=== PATIENT | male | born 2000 | race Caucasian/White ===

== ENCOUNTER 2024-06-05 21:19 | Emergency (ER) | payer OTHER ==
[~2024-06-05] VITALS: Ht 185.4 cm; Wt 117.7 kg
[2024-06-06] MEDS: ACETAMINOPHEN 325 MG TAB PO ONE (04:19)
[2024-06-06 04:21] LABS: HEMATOCRIT 42.6 % (42.0-52.0); HEMOGLOBIN 15.1 g/dl (13.5-17.5); MEAN CORPUSCULAR HEMOGLOBIN 32.2 pg (27.0-33.0); MEAN CORPUSCULAR HGB CONC 35.4 g/dl (32.0-36.5); MEAN CORPUSCULAR VOLUME 90.8 fl (80.0-96.0); PLATELET COUNT, AUTOMATED 167 10^3/uL (150-450); RED BLOOD COUNT 4.69 10^6/uL (4.30-6.10); WHITE BLOOD COUNT 10.3 10^3/uL (4.0-10.0)
[2024-06-06 04:54] LABS: BLOOD UREA NITROGEN 19 MG/DL (9-23); C REACTIVE PROTEIN QUANTITATIV 6.89 MG/DL (<1.0); CARBON DIOXIDE LEVEL 29 MMOL/L (20-31); CHLORIDE LEVEL 102 MMOL/L (98-107); CREATININE FOR GFR 1.08 MG/DL (0.70-1.30); GLOMERULAR FILTRATION RATE > 60.0 (>60); GLUCOSE, FASTING 117 MG/DL (60-100); MAGNESIUM LEVEL 1.8 MG/DL (1.8-2.4); POTASSIUM SERUM 4.2 MMOL/L (3.5-5.1); SODIUM LEVEL 137 MMOL/L (136-145)
[2024-06-06] MEDS ORDERED: ISOVUE-370 76% 100ML VIAL As Ordered ONE (04:55)
[2024-06-06] MEDS: methylPREDNISolone 125MG 2ML VIAL IV ONE (05:02)
[2024-06-06] MEDS: diazePAM 10MG/2ML SYRINGE IV ONE (05:02)
[2024-06-06 05:06] VITALS: BP 157/74; TEMP 97.9; O2SAT 95
[2024-06-06] MEDS: LIDOCAINE 2% W/EPINEPHRINE 20ML VIAL **PRES FREE INJ ONE (06:20)
[2024-06-06] MEDS ORDERED: AMOX875T2 PO (07:04)
[2024-06-06] MEDS ORDERED: MEDR4PAK PO (07:04)
[2024-06-06] MEDS ORDERED: VALI5TAB PO (07:04)
[2024-06-06] MEDS: AUGMENTIN 875 MG TAB PO ONE (07:43)
[2024-06-06] MEDS: traMADol 50 MG TAB (HOME DOSE PACK) PO ONE (07:45)
== END 2024-06-06 07:51 | disposition home or self-care (01) ==
LOC: M ED 21:19
DX: M54.31 Sciatica, right side (principal); L05.01 Pilonidal cyst with abscess; M48.061 Spinal stenosis, lumbar region without neurogenic claudication; Z79.2 Long term (current) use of antibiotics; Z79.899 Other long term (current) drug therapy
CPT/HCPCS: 10080; 72131; 72193; 80047; 80048; 83735; 85027; 86140; 87070; 87077; 87186; 87205; 87486; 87581; 87633; 87798; 96374; 99284; J2919; J3360; Q9967